=== PATIENT | male | born 1970 | race African-American/Black ===

== ENCOUNTER 2017-05-10 07:01 | Emergency (ER) | payer MEDICARE, MEDICAID ==
[~2017-05-10] VITALS: Ht 182.9 cm; Wt 73.5 kg
[~2017-05-10 07:01] MED LIST: IBUP800T23 PO; MMW SWISH-SPIT; PENI500T PO; Z.0.NO CURRENT MEDS
[2017-05-10 07:02] VITALS: BP 129/75; PULSE 100; RESP 20; TEMP 98.5; O2SAT 99
[2017-05-10] MEDS ORDERED: IBUPROFEN 800 MG TAB PO ONE (07:15)
[2017-05-10] MEDS ORDERED: MAGICPED SWISH-SPIT (07:19)
--- NOTE | 2017-05-10 07:19 | PD ---
HPI Chief Complaint: ENT Complaint Time Seen by Provider: 07:13 Travel History International Travel<30 days: No Contact w/Intl Traveler<30days: No Traveled to known affect area: No History of Present Illness HPI 46-year-old male presents to emergency department complaining of sore throat that he woke up this morning. Denies fever, headache, abdominal pain, vomiting. Denies nasal congestion, ear pain, cough. Denies lump in throat, difficulty swallowing, unusual drooling. Reports painful swallowing. Says he tried to drink water and it was really painful to swallow. Symptoms are mild in severity. Has not taken any medications or tried any treatments to alleviate his symptoms. No known allergies. Has no other medical complaints. No other modifying factors or associated signs and symptoms. PFSH Past Medical History Autoimmune Disease: Yes Diminished Hearing: No Past Surgical History Other Surgery: Yes (HERNIA REPAIR) Social History Alcohol Use: Yes Tobacco Use: Yes Substance Use: Yes Allergies-Medications (Allergen,Severity, Reaction): Coded Allergies: No Known Allergies (Verified , 05/10/17) Reported Meds & Prescriptions Reported Meds & Active Scripts Active Magic Mouthwash Pediatric/Adult Liq (Lidocaine/Diphenhydr/Alum/Mg/Simeth) 60 Ml Susp 5 Ml SWISH-SPIT Q3HR PRN Each 5mL contains: Diphenydramine 4.5mg, Viscous Lidocaine 2% 10mg, Maalox Advanced Regular Strength 2.7ml Review of Systems Except as stated in HPI: all other systems reviewed are Neg Physical Exam Narrative GENERAL: Well-nourished, well-developed male patient, in no acute distress; afebrile, nontoxic-appearing SKIN: Warm and dry. No rash. HEAD: Atraumatic. Normocephalic. EYES: Pupils equal and round at 3 mm with brisk reaction. No scleral icterus. No injection or drainage. PERRLA. ENT: Mucosa pink and dry. Pharynx with 1+ tonsils; with erythema; without exudate, and edema. No Uvular edema. No uvular, palatal, or tonsillar deviation. Airway patent. Voice is hoarse. EARS: Bilateral pinnae and external canals appear within normal limits. Bilateral tympanic membranes without erythema, dullness or perforation.. NECK: Trachea midline. Anterior cervical lymphadenopathy and tenderness. CARDIOVASCULAR: Regular rate. RESPIRATORY: No accessory muscle use. GASTROINTESTINAL: Flat. MUSCULOSKELETAL: No obvious deformities. No clubbing. No cyanosis. No edema. NEUROLOGICAL: Awake and alert. Oriented 3. No obvious cranial nerve deficits. Motor grossly within normal limits. Normal speech. Moves all extremities. PSYCHIATRIC: Appropriate mood and affect; insight and judgment normal. Data Data Last Documented VS Vital Signs Date Time Temp Pulse Resp B/P (MAP) Pulse Ox O2 Delivery O2 Flow Rate FiO2 05/10/17 07:46 05/10/17 07:02 98.5 100 20 99 Room Air Orders Orders Group A Rapid Strep Screen (05/10/17 07:13) Ibuprofen (Motrin) (05/10/17 07:15) Strep Culture (Group A) (05/10/17 07:15) [facility] Medical Decision Making Medical Screen Exam Complete: Yes Emergency Medical Condition: Yes Medical Record Reviewed: Yes Differential Diagnosis Sore throat, viral pharyngitis, strep pharyngitis, less likely peritonsillar abscess Narrative Course 46-year-old male with sore throat. Denies lump in throat, difficulty swallowing , unusual drooling. Patient is afebrile and nontoxic-appearing. Denies fever, vomiting. Ibuprofen rapid strep ordered. 0815: Rapid strep negative. Magic mouthwash prescribed for home. Instructed patient to follow up with primary care provider. Patient verbalizes understanding and agreement with treatment plan. Patient is medically cleared and stable for discharge. Discussed reasons to return to the emergency department. Patient agrees with treatment plan. The patients vital signs are stable and the patient is stable for outpatient follow-up and treatment. Patient discharged home, stable and in no acute distress. Diagnosis Primary Impression: Sore throat Referrals: [facility] Primary Care Physician Patient Instructions: General Instructions, Pharyngitis (ED) Departure Forms: Tests/Procedures, Work Release Enter return to work date: May 11, 2017 Additional Instructions: Throw away and change your toothbrush 24 hours after starting antibiotics Get plenty of sleep/rest Rest your voice Drink plenty of fluids to prevent dehydration Use warm saltwater gargles to soothe throat pain Use an air humidifier/turn off ceiling fans Use throat lozenges as needed for sore throat Use ibuprofen or acetaminophen as needed to relieve pain and fever Follow-up with your primary care provider within 2-4 days Return immediately to the emergency department with worsening of symptoms Med/Other Pt SpecificInfo: Prescription(s) given Scripts Tbtcgyrsawvpvup-Wgargcrsl-Mxl-Alum-Simeth Liq (Magic Mouthwash Pediatric/Adult Liq) 60 Ml Susp 5 ML SWISH-SPIT Q3HR Y for SORE THROAT, #60 ML 0 Refills Each 5mL contains: Diphenydramine 4.5mg, Viscous Lidocaine 2% 10mg, Maalox Advanced Regular Strength 2.7ml Prov: Swati Oleary 05/10/17 Disposition: 01 DISCHARGE HOME Condition: Stable Swati Oleary May 10, 2017 07:19
== END 2017-05-10 08:25 | disposition home or self-care (01) ==
LOC: NEPK 07:01
DX: J02.9 Acute pharyngitis, unspecified (principal)
CPT/HCPCS: 87081; 87880; 99283